=== PATIENT | male | born 1940 | race Caucasian/White ===

== ENCOUNTER 2023-02-16 09:57 | Outpatient (CLI) | payer MEDICARE, SELFPAY ==
[2023-02-16 10:20] VITALS: BP 123/68; PULSE 74; RESP 18; O2SAT 99
== END 2023-02-16 10:30 | disposition home or self-care (01) ==
LOC: LAB 10:01 → INF 10:13
DX: E53.8 Deficiency of other specified B group vitamins (principal)
CPT/HCPCS: 96372